=== PATIENT | male | born 1980 | race Caucasian/White ===

== ENCOUNTER 2018-01-12 11:20 | Emergency (ER) | payer MEDICAID ==
[~2018-01-12] VITALS: Ht 182.9 cm; Wt 80.0 kg
[2018-01-12 13:04] VITALS: BP 144/87
[2018-01-12] MEDS ORDERED: ACETAMINOPHEN 500 MG TABLET PO ONE (13:15)
== END 2018-01-12 13:38 | disposition home or self-care (01) ==
LOC: EMS 11:26
DX: J06.9 Acute upper respiratory infection, unspecified (principal); E05.90 Thyrotoxicosis, unspecified without thyrotoxic crisis or storm
CPT/HCPCS: 99282

== ENCOUNTER 2018-01-18 18:04 | Emergency (ER) | payer MEDICAID ==
[~2018-01-18] VITALS: Ht 182.9 cm; Wt 77.3 kg
[2018-01-18 19:54] VITALS: BP 135/81
[2018-01-18] MEDS ORDERED: AMOXICILLIN TRIHYDRATE 250 MG CAPSULE PO ONE (20:15)
[2018-01-18] MEDS ORDERED: IBUPROFEN 800 MG TABLET PO ONE (20:15)
== END 2018-01-18 20:20 | disposition home or self-care (01) ==
LOC: EMS 18:04
DX: K08.89 Other specified disorders of teeth and supporting structures (principal); E05.90 Thyrotoxicosis, unspecified without thyrotoxic crisis or storm
CPT/HCPCS: 99283

== ENCOUNTER 2018-03-22 16:40 | Emergency (ER) | payer MEDICAID ==
[~2018-03-22] VITALS: Ht 182.9 cm; Wt 77.3 kg
[2018-03-22] MEDS ORDERED: METHI5 PO (17:07)
[2018-03-22] MEDS ORDERED: PROP10TA73 PO (17:07)
[2018-03-22 18:39] LABS: BASOPHILS % (AUTO) 0.4 % (0.0-2.0); EOSINOPHILS % (AUTO) 1.4 % (1.0-6.0); HEMATOCRIT 41.2 % (41-53); HEMOGLOBIN 14.7 g/dL (13.5-17.5); LYMPHOCYTES # (AUTO) 1.2 K/uL (1.0-4.8); LYMPHOCYTES % (AUTO) 22.1 % (22.0-44.0); MEAN CORPUSCULAR HEMOGLOBIN 29.3 pg (26.0-34.0); MEAN CORPUSCULAR HGB CONC 35.8 G/dL (31.0-37.0); MEAN CORPUSCULAR VOLUME 82 fL (80-100); MONOCYTES # (AUTO) 0.5 K/uL (0.1-1.0); MONOCYTES % (AUTO) 8.7 % (2.0-9.0); NEUTROPHILS # (AUTO) 3.6 K/uL (1.8-7.7); NEUTROPHILS % (AUTO) 67.4 % (40.0-70.0); PLATELET COUNT (AUTO) 172 K/uL (150-450); RED BLOOD CELL COUNT(AUTO) 5.04 MIL/uL (4.50-5.90); RED CELL DISTRIBUTION WIDTH 13.3 % (11.5-14.5)
[2018-03-22 18:50] LABS: ANION GAP 8 mmol/L (8-16); CALCIUM, TOTAL 8.8 mg/dL (8.8-10.5); CARBON DIOXIDE 27 mmol/L (22-29); CHLORIDE 104 mmol/L (98-107); CREATININE 0.74 mg/dL (0.60-1.30); GLOMERULAR FILTR. RATE CALC > 60 mL/min (>60); GLUCOSE,RANDOM 125 mg/dL (70-110); POTASSIUM 4.3 mmol/L (3.5-5.1); SODIUM SERUM 139 mmol/L (136-145); UREA NITROGEN, BLOOD 15 mg/dL (7-18)
[2018-03-22 19:09] LABS: FREE T4 (FREE THYROXINE) 1.97 ng/dL (0.76-1.46)
[2018-03-22 20:36] LABS: THYROID STIMULATING HORMONE < 0.01 uIU/mL (0.36-3.74)
[2018-03-22] MEDS ORDERED: METHIMAZOLE 5 MG TABLET PO ONE (20:45)
[2018-03-22] MEDS ORDERED: PROPRANOLOL HCL 10 MG TABLET PO ONE (20:45)
[2018-03-22 21:00] VITALS: BP 118/81
== END 2018-03-22 21:52 | disposition home or self-care (01) ==
LOC: EMS 16:42
DX: E05.90 Thyrotoxicosis, unspecified without thyrotoxic crisis or storm (principal); Z79.899 Other long term (current) drug therapy
CPT/HCPCS: 84439; 84443; 99284

== ENCOUNTER 2018-04-13 15:15 | Emergency (ER) | payer MEDICAID ==
[~2018-04-13] VITALS: Ht 182.9 cm; Wt 79.5 kg
[~2018-04-13 15:15] MED LIST: METHI5 PO; PROP10TA73 PO
[2018-04-13 15:27] VITALS: BP 132/91
== END 2018-04-13 17:22 | disposition home or self-care (01) ==
LOC: EMS 15:16
DX: K02.9 Dental caries, unspecified (principal); E05.90 Thyrotoxicosis, unspecified without thyrotoxic crisis or storm
CPT/HCPCS: 99283

== ENCOUNTER 2018-04-17 22:44 | Emergency (ER) | payer MEDICAID ==
[~2018-04-17] VITALS: Ht 180.3 cm; Wt 65.9 kg
[2018-04-17 23:04] LABS: BASOPHILS % (AUTO) 0.4 % (0.0-2.0); EOSINOPHILS % (AUTO) 0.1 % (1.0-6.0); HEMATOCRIT 41.6 % (41-53); HEMOGLOBIN 14.4 g/dL (13.5-17.5); LYMPHOCYTES # (AUTO) 1.4 K/uL (1.0-4.8); LYMPHOCYTES % (AUTO) 11.4 % (22.0-44.0); MEAN CORPUSCULAR HEMOGLOBIN 28.3 pg (26.0-34.0); MEAN CORPUSCULAR HGB CONC 34.6 G/dL (31.0-37.0); MEAN CORPUSCULAR VOLUME 82 fL (80-100); MONOCYTES # (AUTO) 0.7 K/uL (0.1-1.0); MONOCYTES % (AUTO) 5.8 % (2.0-9.0); NEUTROPHILS # (AUTO) 10.1 K/uL (1.8-7.7); NEUTROPHILS % (AUTO) 82.3 % (40.0-70.0); PLATELET COUNT (AUTO) 212 K/uL (150-450); RED BLOOD CELL COUNT(AUTO) 5.09 MIL/uL (4.50-5.90); RED CELL DISTRIBUTION WIDTH 13.5 % (11.5-14.5)
[2018-04-17 23:14] LABS: ANION GAP 13 mmol/L (8-16); CALCIUM, TOTAL 9.6 mg/dL (8.8-10.5); CARBON DIOXIDE 24 mmol/L (22-29); CHLORIDE 103 mmol/L (98-107); CREATININE 1.31 mg/dL (0.60-1.30); GLOMERULAR FILTR. RATE CALC > 60 mL/min (>60); GLUCOSE,RANDOM 110 mg/dL (70-110); POTASSIUM 3.8 mmol/L (3.5-5.1); SODIUM SERUM 140 mmol/L (136-145); UREA NITROGEN, BLOOD 26 mg/dL (7-18)
[2018-04-17 23:20] LABS: ALANINE AMINOTRANSFERASE 40 U/L (12-78); ALBUMIN 4.4 g/dL (3.4-5.0); ALKALINE PHOSPHATASE 101 U/L (46-116); ASPARTATE AMINOTRANSFERASE 25 U/L (15-37); TOTAL PROTEIN, SERUM 7.8 g/dL (6.4-8.2)
[2018-04-17 23:36] LABS: AMPHET/METH SCREEN,URINE POSITIVE (NEGATIVE); BARBITURATE SCREEN, URINE NEGATIVE (NEGATIVE); BENZODIAZEPINES SCREEN,URINE POSITIVE (NEGATIVE); CANNABINOID SCREEN,URINE POSITIVE (NEGATIVE); COCAINE SCREEN,URINE POSITIVE (NEGATIVE); METHADONE SCREEN, URINE NEGATIVE (NEGATIVE); OPIATE SCREEN,URINE POSITIVE (NEGATIVE)
[2018-04-17 23:40] LABS: PHENCYCLIDINE SCREEN,URINE NEGATIVE (NEGATIVE)
[2018-04-18 04:40] VITALS: BP 129/85
== END 2018-04-18 04:44 | disposition home or self-care (01) ==
LOC: EMS 22:45
DX: F15.10 Other stimulant abuse, uncomplicated (principal); F91.8 Other conduct disorders; F22 Delusional disorders; E05.90 Thyrotoxicosis, unspecified without thyrotoxic crisis or storm; Z78.1 Physical restraint status
CPT/HCPCS: 36415; 80053; 80307; 85025; 99284; G0480

== ENCOUNTER 2019-05-27 01:03 | Emergency (ER) | payer MEDICAID, OTHER ==
[~2019-05-27] VITALS: Ht 182.9 cm; Wt 81.8 kg
[2019-05-27] MEDS ORDERED: HALO5TAB2 PO ×2 (01:27→04:41)
[2019-05-27 04:35] LABS: AMPHET/METH SCREEN,URINE NEGATIVE (NEGATIVE); BARBITURATE SCREEN, URINE NEGATIVE (NEGATIVE); BENZODIAZEPINES SCREEN,URINE NEGATIVE (NEGATIVE); CANNABINOID SCREEN,URINE NEGATIVE (NEGATIVE); COCAINE SCREEN,URINE NEGATIVE (NEGATIVE); METHADONE SCREEN, URINE NEGATIVE (NEGATIVE); OPIATE SCREEN,URINE NEGATIVE (NEGATIVE); PHENCYCLIDINE SCREEN,URINE NEGATIVE (NEGATIVE)
[2019-05-27] MEDS ORDERED: HYDR-3110 PO (04:41)
[2019-05-27] MEDS ORDERED: METHI10 PO (04:41)
[2019-05-27] MEDS ORDERED: NICO-704 TD (04:41)
[2019-05-27] MEDS ORDERED: DIPH50 PO (04:41)
[2019-05-27] MEDS ORDERED: GABA-531 PO (04:41)
[2019-05-27] MEDS ORDERED: SERT50TA12 PO (04:41)
[2019-05-27] MEDS ORDERED: DiphenhydrAMINE HCL 25 MG CAPSULE PO ONE (05:00)
[2019-05-27] MEDS ORDERED: GABAPENTIN 100 MG CAPSULE PO ONE (05:00)
[2019-05-27] MEDS ORDERED: HALOPERIDOL 5 MG TABLET PO ONE (05:00)
[2019-05-27 05:20] LABS: BASOPHILS % (AUTO) 0.6 % (0.0-2.0); EOSINOPHILS % (AUTO) 2.3 % (1.0-6.0); HEMATOCRIT 46.1 % (41-53); LYMPHOCYTES # (AUTO) 1.8 K/uL (1.0-4.8); LYMPHOCYTES % (AUTO) 23.2 % (22.0-44.0); MEAN CORPUSCULAR HGB CONC 34.7 G/dL (31.0-37.0); MEAN CORPUSCULAR VOLUME 86 fL (80-100); MONOCYTES # (AUTO) 0.6 K/uL (0.1-1.0); MONOCYTES % (AUTO) 7.4 % (2.0-9.0); NEUTROPHILS # (AUTO) 5.3 K/uL (1.8-7.7); NEUTROPHILS % (AUTO) 66.5 % (40.0-70.0); PLATELET COUNT (AUTO) 193 K/uL (150-450); RED BLOOD CELL COUNT(AUTO) 5.33 MIL/uL (4.50-5.90); RED CELL DISTRIBUTION WIDTH 13.4 % (11.5-14.5)
[2019-05-27 05:29] LABS: ANION GAP 10 mmol/L (8-16); CALCIUM, TOTAL 9.3 mg/dL (8.8-10.5); CARBON DIOXIDE 26 mmol/L (22-29); CHLORIDE 101 mmol/L (98-107); CREATININE 0.97 mg/dL (0.60-1.30); GLOMERULAR FILTR. RATE CALC > 60 mL/min (>60); GLUCOSE,RANDOM 111 mg/dL (70-110); SODIUM SERUM 137 mmol/L (136-145); UREA NITROGEN, BLOOD 13 mg/dL (7-18)
[2019-05-27 05:56] LABS: ALANINE AMINOTRANSFERASE 41 U/L (12-78); ALBUMIN 4.4 g/dL (3.4-5.0); ALKALINE PHOSPHATASE 137 U/L (46-116); ASPARTATE AMINOTRANSFERASE 20 U/L (15-37); BILIRUBIN,TOTAL 0.7 mg/dL (0.1-1.0); CREATINE KINASE, TOTAL ONLY 86 U/L (39-308); FREE T4 (FREE THYROXINE) 1.19 ng/dL (0.76-1.46); TOTAL PROTEIN, SERUM 7.6 g/dL (6.4-8.2)
[2019-05-27 06:17] LABS: THYROID STIMULATING HORMONE < 0.01 uIU/mL (0.36-3.74)
[2019-05-27] MEDS ORDERED: LORazepam 2 MG TABLET PO ONE (06:30)
[2019-05-27 06:56] VITALS: BP 128/86
== END 2019-05-27 07:20 | disposition home or self-care (01) ==
LOC: EMS 01:03
DX: F20.9 Schizophrenia, unspecified (principal); R25.1 Tremor, unspecified; E05.90 Thyrotoxicosis, unspecified without thyrotoxic crisis or storm; Z79.899 Other long term (current) drug therapy
CPT/HCPCS: 36415; 80053; 80307; 82550; 84439; 84443; 85025; 99284; G0480

== ENCOUNTER 2019-08-22 16:43 | Emergency (ER) | payer OTHER ==
[~2019-08-22] VITALS: Ht 172.7 cm; Wt 77.3 kg
[~2019-08-22 16:43] MED LIST changes: +DIPH50 PO; +GABA-531 PO; +HALO5TAB2 PO; +HYDR-3831 PO; +METHI10 PO; -METHI5 PO; +NICO-704 TD; -PROP10TA73 PO; +SERT50TA12 PO
[2019-08-22] MEDS ORDERED: IBUPROFEN 400 MG TABLET PO ONE (19:15)
[2019-08-22] MEDS ORDERED: ACETAMINOPHEN 325 MG TABLET PO ONE (19:15)
[2019-08-22] MEDS ORDERED: ONDANSETRON HCL 4 MG/2 ML VIAL IVP ONE (20:00)
[2019-08-22] MEDS ORDERED: SODIUM CHLORIDE 0.9% 1,000 ML IV ONE (20:00)
[2019-08-22] MEDS ORDERED: KETOROLAC TROMETHAMINE 30 MG/ML VIAL IVP ONE (20:00)
[2019-08-22] MEDS ORDERED: DEXAMETHASONE SOD PHOS 4 MG/ML 5 ML VIAL IVP ONE (20:00)
[2019-08-22 21:20] LABS: BASOPHILS % (AUTO) 0.4 % (0.0-2.0); EOSINOPHILS % (AUTO) 0.6 % (1.0-6.0); HEMATOCRIT 36.1 % (41-53); HEMOGLOBIN 12.7 g/dL (13.5-17.5); LYMPHOCYTES % (AUTO) 16.3 % (22.0-44.0); MEAN CORPUSCULAR HEMOGLOBIN 30.7 pg (26.0-34.0); MEAN CORPUSCULAR HGB CONC 35.1 G/dL (31.0-37.0); MEAN CORPUSCULAR VOLUME 87 fL (80-100); MONOCYTES % (AUTO) 17.6 % (2.0-9.0); NEUTROPHILS # (AUTO) 3.8 K/uL (1.8-7.7); NEUTROPHILS % (AUTO) 65.1 % (40.0-70.0); PLATELET COUNT (AUTO) 209 K/uL (150-450); RED BLOOD CELL COUNT(AUTO) 4.13 MIL/uL (4.50-5.90); RED CELL DISTRIBUTION WIDTH 14.3 % (11.5-14.5)
[2019-08-22 21:31] LABS: ANION GAP 4 mmol/L (8-16); CALCIUM, TOTAL 8.6 mg/dL (8.8-10.5); CARBON DIOXIDE 34 mmol/L (22-29); CHLORIDE 94 mmol/L (98-107); CREATININE 0.86 mg/dL (0.60-1.30); GLOMERULAR FILTR. RATE CALC > 60 mL/min (>60); GLUCOSE,RANDOM 91 mg/dL (70-110); POTASSIUM 3.3 mmol/L (3.5-5.1); SODIUM SERUM 132 mmol/L (136-145); UREA NITROGEN, BLOOD 10 mg/dL (7-18)
[2019-08-22 21:46] LABS: ALANINE AMINOTRANSFERASE 43 U/L (12-78); ALBUMIN 3.4 g/dL (3.4-5.0); ALKALINE PHOSPHATASE 78 U/L (46-116); ASPARTATE AMINOTRANSFERASE 31 U/L (15-37); BILIRUBIN,TOTAL 0.6 mg/dL (0.1-1.0); FREE T4 (FREE THYROXINE) 2.56 ng/dL (0.76-1.46)
[2019-08-22 21:47] LABS: THYROID STIMULATING HORMONE < 0.01 uIU/mL (0.36-3.74)
[2019-08-22] MEDS ORDERED: IOVERSOL 320 MG/ML 100 ML VIAL ONE (21:48)
[2019-08-22] MEDS ORDERED: SODIUM CHLORIDE 0.9% 100 ML ONE (21:48)
[2019-08-23 01:15] VITALS: BP 154/75
== END 2019-08-23 01:40 | disposition home or self-care (01) ==
LOC: EMS 16:44
DX: R22.1 Localized swelling, mass and lump, neck (principal); R13.10 Dysphagia, unspecified; E86.0 Dehydration; J02.9 Acute pharyngitis, unspecified; R05 Cough; E05.90 Thyrotoxicosis, unspecified without thyrotoxic crisis or storm; F20.9 Schizophrenia, unspecified
CPT/HCPCS: 36415; 70491; 71045; 71260; 80053; 84439; 84443; 85025; 86308; 87430; 96361; 96374; 96375; 99284; J1100; J1885; J2405; J7030; J7050; Q9967